=== PATIENT | male | born 1980 | race Two or more races ===

== ENCOUNTER 2017-07-13 11:48 | Emergency (ER) | payer SELFPAY ==
[~2017-07-13] VITALS: Ht 175.3 cm; Wt 81.6 kg
--- NOTE | 2017-07-13 12:49 | Emergency Room Report ---
History of Present Illness General Chief Complaint: Skin Rash/Abscess Source: Patient Present Illness HPI 37 YO Male presents to the ED c/o tenderness, swelling, and erythema of lateral right ankle x 2 days s/p insect bite that he scratched, and symptoms progressed to erythema, increased temperature to palpation, and burning discomfort. Pt. rates pain as 0/10 , describes burning discomfort. pt. reports initial itching has resolved. pt. states he is UTD with tetanus. denies hx of immune compromise. Pt. states subjective fever last night, did not measure it, and did not take medication for his fever. Denies lesions/rashes elsewhere on the body. Denies new medications or body washes or creams. Denies swelling of the lips, tongue , throat or airway. Denies wheezing, or shortness of breath. Denies recent travel, recent illness or ill contacts. denies blisters, oral lesions, or sloughing of the skin. Allergies: Coded Allergies: No Known Allergies (Unverified , 07/13/17) Patient History Past Medical History: see triage record Past Surgical History: none Pertinent Family History: none Immunizations: UTD Reviewed Nursing Documentation: PMH: Agreed, PSxH: Agreed Nursing Documentation-PMH Past Medical History: No Stated History Review of Systems All Other Systems: negative except mentioned in HPI Physical Exam Vital Signs Date Time Temp Pulse Resp B/P (MAP) Pulse Ox O2 Delivery O2 Flow Rate FiO2 07/13/17 12:05 98.4 68 18 116/70 98 Room Air Sp02 EP Interpretation: reviewed, normal General Appearance: no apparent distress, alert, GCS 15, non-toxic Head: normocephalic, atraumatic Eyes: bilateral eye normal inspection, bilateral eye PERRL ENT: hearing grossly normal, normal pharynx, no angioedema, normal voice Neck: full range of motion Respiratory: chest non-tender, lungs clear, normal breath sounds, no wheezing, speaking full sentences Cardiovascular #1: regular rate, rhythm, normal capillary refill Musculoskeletal: back normal, gait/station normal, normal range of motion, non- tender Neurologic: alert, oriented x3, responsive, motor strength/tone normal, sensory intact, speech normal Skin: warm/dry, well hydrated, other - small punctate lesion (0.2cm) suspicious for insect bite with secondary cellulitis (6cm of surrounding erythema and increased temperature to palpation). FROM of ankle , not suspicious for septic joint, no targetoid/ bullseye rash. no blisters/vesicles. Medical Decision Making PA Attestation Dr. Cornelius is my supervising Physician whom patient management has been discussed with. Diagnostic Impression: Primary Impression: Cellulitis Qualified Codes: L03.116 - Cellulitis of left lower limb ER Course 37 YO Male presents to the ED c/o tenderness, swelling, and erythema of lateral right ankle x 2 days s/p insect bite that he scratched, and symptoms progressed to erythema, increased temperature to palpation, and burning discomfort. Pt. rates pain as 0/10 , describes burning discomfort. pt. reports initial itching has resolved. pt. states he is UTD with tetanus. denies hx of immune compromise. Pt. states subjective fever last night, did not measure it, and did not take medication for his fever. Denies lesions/rashes elsewhere on the body. Denies new medications or body washes or creams. Denies swelling of the lips, tongue , throat or airway. Denies wheezing, or shortness of breath. Denies recent travel, recent illness or ill contacts. denies blisters, oral lesions, or sloughing of the skin. Ddx considered but are not limited to insect bite, cellulitis, Tic bite, fracture, d/L, gout Vital signs: are WNL, pt. is afebrile H&PE are most consistent with localized cellulitis of the right lateral ankle about small punctate lesion suspicious for insect bite with secondary cellulitis. FROM of ankle , not suspicious for septic joint, no targetoid/ bullseye rash. no blisters/vesicles, evidence of anaphylaxis or impending airway compromise. pt. non-toxic in appearance. ORDERS: none required at this time, the diagnosis is clinical ED INTERVENTIONS: None required at this time. d/w pt. conservative treatment, and to follow up with a primary care provider. pt given a list of primary care clinics for follow up. d/w pt. to return to the ED with worsening or new symptoms. DISCHARGE: At this time pt. is stable for d/c to home. Will provide printed patient care instructions, and any necessary prescriptions. Care plan and follow up instructions have been discussed with the patient prior to discharge. Last Vital Signs Date Time Temp Pulse Resp B/P (MAP) Pulse Ox O2 Delivery O2 Flow Rate FiO2 07/13/17 12:05 98.4 68 18 116/70 98 Room Air Disposition: HOME, SELF-CARE Condition: Stable Scripts Ibuprofen* (MOTRIN*) 600 Mg Tablet 600 MG ORAL THREE TIMES A DAY, #30 TAB 0 Refills Prov: Marilin Tubbs 07/13/17 Trimethoprim/Sulfamethoxazole 160/800* (BACTRIM DS TABLET*) 1 Each Tablet 1 TAB ORAL TWICE A DAY for 7 Days, #14 TAB Prov: Marilin Tubbs 07/13/17 Cephalexin* (KEFLEX*) 500 Mg Capsule 500 MG ORAL EVERY 12 HOURS for 7 Days, #14 CAP 0 Refills Prov: Marilin Tubbs 07/13/17 Patient Instructions: Cellulitis Additional Instructions: Take medications as directed. Follow up with a Primary Care Provider in 3-5 days, even if your symptoms have resolved. --Please review list of primary care clinics, if you do not already have a primary care provider Return sooner to ED if new symptoms occur, or current symptoms become worse. - Please note that this Emergency Department Report was dictated using [employer] machine operator technology software, occasionally this can lead to erroneous entry secondary to interpretation by the dictation equipment. Marilin Tubbs Jul 13, 2017 12:49
[2017-07-13] MEDS ORDERED: BACTRIM DS TAB1 EAC1 ORAL (12:50)
[2017-07-13] MEDS ORDERED: IBUPROFEN600 MG ORAL (12:50)
[2017-07-13] MEDS ORDERED: CEPHALEXIN500 MG ORAL (12:50)
[2017-07-13 13:08] VITALS: BP 124/75
== END 2017-07-13 13:09 | disposition home or self-care (01) ==
LOC: EMR 13:00
DX: L03.115 Cellulitis of right lower limb (principal)
CPT/HCPCS: 99283; 99284